=== PATIENT | male | born 1950 | race Caucasian/White ===

== ENCOUNTER 2017-08-11 22:26 | Inpatient (IN) ==
[2017-08-11] MEDS ORDERED: DiltiaZEM 25 MG/5 ML INJECTION IVP ONE (22:39)
[2017-08-11] MEDS ORDERED: NS 1,000 ML IV ONE (22:40)
--- NOTE | 2017-08-11 22:42 | Emergency Department Report ---
Cardiac General HPI - General Stated Complaint: CP, afib Time Seen by Provider: 08/11/17 22:35 Source: patient Mode of arrival: ambulatory Limitations: no limitations - History of Present Illness HPI narrative: Patient presents with 2 hour history of sudden onset palpitations with rapid heartbeat and mild shortness of breath. Patient has never had symptoms like this before, was walking in the stairs when he had sudden onset of symptoms. Patient's brother does have atrial fibrillation, and he was concerned that he might have had atrial fibrillation as well. - Related Data Home Medications Medication Instructions Recorded Confirmed Amlodipine Besylate 1 tab PO DAILY #30 07/03/15 Chlorthalidone 1 tab PO DAILY #30 07/03/15 Allergies Allergy/AdvReac Type Severity Reaction Status Date / Time nebivolol Allergy Unknown Unverified 04/02/16 15:52 Review of Systems All systems: reviewed and negative except as stated PFSH Patient Stated Medical History Cataracts Yes: right eye Hypertension Yes Gastroesophageal Reflux Yes Disease Hypertension Surgical History: Negative - Social History Smoking status: Never smoker Substance use type: does not use Alcohol intake frequency: does not drink Physical Exam - Limitations Limitations: no limitations - General General appearance: alert - Normal Exams: Head:: Normocephalic without trauma Eyes:: Pupils are PERRLA w/ EOMI, No scleral icterus, irritation, or foreign bodies noted ENMT:: No facial trauma, nasal exudates, pharyngeal erythema, or exudates are noted Neck:: Full range of motion, without adenopathy, JVD, bruits or thyromegaly Abdomen:: Bowel sounds positive, soft, non-tender, non-distended, no hepatosplenomegaly, masses or bruits noted Lymphatic:: No lymphadenopathy, or lymphedema noted Musculoskeletal:: No tenderness, or deformity noted, good range of motion, all extremities Integumentary:: No rashes, hives, or bruising noted, hair and nails, without abnormality Neurological:: Patient is alert, and oriented, cranial nerves, motor/sensory/ cerebellar, exams w/o gross deficits, to observation Psychiatric:: Patient exhibits, appropriate attention, emotion and affect - Chest Chest inspection: Present: normal inspection, symmetric chest wall rise. Absent : tenderness - Respiratory Respiratory exam: Present: normal lung sounds bilaterally. Absent: respiratory distress, wheezes, stridor, accessory muscle use, prolonged expiratory phase - Cardiovascular Cardiovascular exam: Present: tachycardia, irregular rhythm. Absent: regular rate, normal rhythm Course Vital Signs Temperature 97.9 F 08/11/17 22:30 Pulse Rate 151 H 08/11/17 22:30 Respiratory Rate 16 08/11/17 22:30 Blood Pressure 97/72 08/11/17 22:30 Pulse Oximetry 95 08/11/17 22:30 Temperature 97.9 F 08/11/17 22:30 Pulse Rate 151 H 08/11/17 22:30 Respiratory Rate 16 08/11/17 22:30 Blood Pressure 97/72 08/11/17 22:30 Pulse Oximetry 95 08/11/17 22:30 Cardiac General - MDM Narrative Medical decision making narrative: EKG and monitor show uncontrolled atrial fibrillation with a rapid ventricular rate, no other ischemia or infarction is seen. Patient is given 1 L normal saline IV fluid bolus and Cardizem 20 mg IV - to rate controlled but not conversion. CBC - n CMP - n Troponin -n Case was discussed with Dr. Jeffers's cardiac team, patient will be admitted to CCU, continue metoprolol dosing and fluids overnight, and will undertake possible second has cardioversion tomorrow after echo if the patient does not convert medically. - Lab Data Result diagrams: 08/11/17 22:44 08/11/17 22:44 Lab Results 08/11/17 08/11/17 Range/Units 22:44 22:44 WBC 6.2 (4.5-11.0) T/MM3 RBC 4.66 (4.50-5.90) M/MM3 Hgb 14.3 (13.5-17.5) GM/DL Hct 41.9 (41-53) % MCV 89.9 (80-100) UM3 MCH 30.7 (26-34) UUG MCHC 34.1 (31-37) GM/DL RDW Std Deviation 41.2 (36.9-50.2) FL Plt Count 216 (130-400) T/MM3 MPV 10.5 (9.4-12.4) UM3 Immature Gran % (Auto) 0.2 (0.0-0.5) % Neut % (Auto) 46.3 (33-66) % Lymph % (Auto) 39.0 (23-45) % Glascock % (Auto) 9.0 (0-9.0) % Eos % (Auto) 4.2 H (0-4) % Baso % (Auto) 1.3 (0-2) % Neut # (Auto) 2.9 (1.8-7.7) T/MM3 Lymph # (Auto) 2.4 (1-4.8) T/MM3 Glascock # (Auto) 0.6 (0-0.8) T/MM3 Eos # (Auto) 0.3 (0-0.5) T/MM3 Baso # (Auto) 0.1 (0-0.2) T/MM3 Abs Immat Gran (auto) 0.01 (0.00-0.03) T/MM3 Turbidity < 20 (0-20) Sodium 147 H (134-144) MEQ/L Potassium 3.3 L (3.6-5) MEQ/L Chloride 109 H (98-107) MEQ/L Carbon Dioxide 26 (22-30) MEQ/L Anion Gap 12 (5-15) MEQ/L BUN 27.0 H (9-20) MG/DL Creatinine 1.2 (0.8-1.5) MG/DL GFR Calculation 60 BUN/Creatinine Ratio 23 (6-26) RATIO Glucose 108 (75-110) MG/DL Calculated Osmolality 288 H (261-280) MOSM/KG Calcium 8.9 (8.4-10.2) MG/DL Total Bilirubin < 0.10 L (0.20-1.30) MG/DL Conjugated Bilirubin 0.00 (0.00-0.30) MG/DL Unconjugated Bilirubin 0.00 (0.00-1.1) MG/DL Icterus Index < 2 (0-7) AST 26 (17-59) U/L ALT 32 (21-72) U/L Alkaline Phosphatase 49 (38-126) U/L Troponin I < 0.012 (0-0.12) ng/ml Total Protein 6.7 (6.3-8.2) G/DL Albumin 3.8 (3.5-5.0) G/DL Globulin 2.9 (2.4-3.6) G/DL Albumin/Globulin Ratio 1.3 (1.1-2.2) RATIO Specimen Hemolysis < 15 (0-25) Critical Care Time Critical Care Time: Yes Total Critical Care Time: 40 Attestation: Patient had chest pain with shortness of breath and a 2 fibrillation with RVR, requiring extensive intervention, diagnostics, and therapeutic doses of cardiac medications. Disposition Clinical Impression: Atrial fibrillation with RVR Disposition: 02 To [facility] Condition: Improved Prescriptions: No Action Chlorthalidone 1 tab PO DAILY #30 Amlodipine Besylate 1 tab PO DAILY #30 Referrals: Nikhil Pathak MD [Family Provider] - - Seen By: physician
[2017-08-11] MEDS: SALINE FLUSH 10ml SYRINGE IVF PRN (22:47)
[2017-08-12] MEDS ORDERED: METOPROLOL 5mg/5ml INJECTION IVP ONE ×2 (00:16→00:35)
[2017-08-12] MEDS ORDERED: ONDANSETRON ODT 4 MG TABLET PO ONE (00:21)
[2017-08-12] MEDS ORDERED: IBUPROFEN 100 MG/5 ML ORAL LIQUID PO ONE (00:21)
[2017-08-12] MEDS: SALINE FLUSH 10ml SYRINGE IVF PRN (00:38)
[2017-08-12 00:57] VITALS: BMI 25.4
[2017-08-12] MEDS: HEPARIN SUB-Q 5,000units/0.5ml INJECTION SQ SCH ×3 (01:26→16:34)
[2017-08-12] MEDS ORDERED: NS 1,000 ML IV SCH (01:30)
[2017-08-12] MEDS ORDERED: CHLORTHALIDONE 25 MG TABLET PO SCH (11:30)
[2017-08-12] MEDS ORDERED: AMLODIPINE 5 MG TABLET PO SCH (11:30)
--- NOTE | 2017-08-12 12:18 | Cardiology History & Physical ---
History of Present Illness Chief complaint: atrial fibrillation HPI: Anam is a 67 year old patient of Dr. Nikhil Pathak who presented with 2 hour history of sudden onset palpitations with rapid heartbeat and mild shortness of breath. Patient has never had symptoms like this before, was walking in the stairs when he had sudden onset of symptoms. Patient's brother does have atrial fibrillation, and he was concerned that he might have had atrial fibrillation as well. He was examined in CCU where he has converted to SR. He reports that occasionally from time to time he has a feeling like he is close to passing out , usually associated with illness. He denies recent illness, fever, chills, sore throat, cough, chest pain or pressure, dyspnea, N/V/D. Review of Systems - Constitutional Constitutional: Present: as per HPI. Absent: chills, fever(s) - EENMT Eyes: Absent: change in vision Balance: Absent: vertigo Mouth/Throat: Absent: sore throat - Cardiovascular Cardiovascular: Present: palpitations. Absent: chest pain, syncope, dyspnea on exertion, orthopnea, heart murmur Rhythm: Absent: abnormal rhythm Vascular: Absent: pedal edema - Respiratory Respiratory: Absent: cough, dyspnea, dyspnea on exertion - Gastrointestinal Gastrointestinal: Absent: abdominal pain, diarrhea, nausea, vomiting - Genitourinary Genitourinary: Absent: dysuria - Neurological Neurological: Present: as per HPI, dizziness - Endocrine Endocrine: Absent: palpitations PFS Patient Stated Medical History Cataracts Yes: right eye Hypertension Yes Gastroesophageal Reflux Yes Disease Surgical History: Negative Family History: Brother - Atrial fibrillation - Social History Smoking status: Never smoker Substance use type: does not use Alcohol intake frequency: does not drink Housing: house Household members: spouse Current occupation: [employer] Medications Home Medications Medication Instructions Recorded Confirmed Type Amlodipine Besylate 1 tab PO DAILY #30 07/03/15 08/12/17 History Chlorthalidone 1 tab PO DAILY #30 07/03/15 08/12/17 History Allergies Allergy/AdvReac Type Severity Reaction Status Date / Time nebivolol AdvReac Mild Verified 08/12/17 01:04 Exam Vital signs: Temperature 98.5 F 08/12/17 04:00 Pulse Rate 97 08/12/17 07:00 Respiratory Rate 10 08/12/17 07:00 Blood Pressure 88/54 08/12/17 07:00 Pulse Oximetry 95 08/12/17 07:00 - Constitutional no acute distress, well nourished, cooperative - Routine HEENT Exam Head: Present: normocephalic ENT: Present: mucous membranes moist - Routine Neck Exam Absent: JVD, carotid bruit - Routine Chest/Breast/Axilla Exam Chest wall: Absent: tenderness - Routine Respiratory Exam Present: CTA bilaterally. Absent: rales, wheezes - Routine Cardiovascular Exam Present: RRR, no murmur. Absent: JVD - Routine Abdominal Exam Present: soft, normoactive bowel sounds - Routine Extremities Exam Present: no edema - Routine Skin Exam Present: intact, dry, warm - Routine Neurological Exam Present: alert, oriented X3 - Routine Psychiatric Exam Present: normal affect, normal thought process Results 08/13/17 03:48 08/13/17 03:48 Intake and Output 08/11/17 08/12/17 08/12/17 22:59 06:59 14:59 Intake Total 1392.5 / 1392.5 225 / 225 Output Total 500 / 500 200 / 200 Balance 892.5 / 892.5 25 / 25 Intake: IV 1342.5 / 1342.5 225 / 225 Ns 1,000 ml @ 75 mls/hr IV . 1342.5 / 1342.5 225 / 225 [id number] [facility] Rx#:[id number] Oral 50 / 50 Output: Urine 500 / 500 200 / 200 Other: Urine Appearance Clear Clear Urine Color Pale Yellow Yellow Weight 187 lb 13.341 oz - Imaging and Cardiology Echo: pending Hospital Course This is a general summary of the patient's hospital course. For more details refer to the complete medical record. Assessment and Plan - Attestation Attestation Narrative: 08/16/17 10:44 Recommendation After examining the patient I agree with the above assessment. I am involved in the formulation of the patient's plan of care. - Assessment and Plan (1) Atrial fibrillation with RVR Status: Acute Converted to SR with Cardizem and Metoprolol - Started on Flecainide 50mg bid for antiarrhythmic therapy - Started Pradaxa for anticoagulation therapy - monitor telemetry for arrhythmias - EKG in am (2) Essential (primary) hypertension Status: Chronic
[2017-08-12] MEDS ORDERED: FLECAINIDE 100 MG TABLET PO ONE (12:48)
[2017-08-12 13:28] VITALS: RESP 16
--- NOTE | 2017-08-12 13:42 | XRay Report ---
Indication: A Fib PROCEDURE: XR chest 1V: Encounter: Initial Comparison: Chest CT dated May 28, 2016 Findings: Lungs are clear. No pleural effusion or pneumothorax. Heart size is at the upper limits of normal. The mediastinal contours and pulmonary vascularity are normal. Mild degenerative change and scoliosis in the spine. Impression: No acute cardiopulmonary disease. .
[2017-08-12] MEDS: FLECAINIDE 50 MG TABLET PO SCH (20:47)
[2017-08-12] MEDS ORDERED: HEPARIN SUB-Q 5,000units/0.5ml INJECTION SQ SCH (21:00)
[2017-08-12] MEDS ORDERED: --POM--AMLODIPINE 5 MG TABLET PO SCH (21:00)
[2017-08-13] MEDS: FLECAINIDE 50 MG TABLET PO SCH (08:44)
[2017-08-13] MEDS ORDERED: --POM--CHLORTHALIDONE 25 MG TABLET PO SCH (09:00)
--- NOTE | 2017-08-13 10:22 | Discharge Summary ---
<Alexus Myers - Last Filed: 08/13/17 10:20> Discharge Information Date of admission: 08/12/17 13:32 Anticipated date of discharge: 08/13/17 Attending Physician: Jack Jeffers MD Primary care physician: Nikhil Pathak MD - Discharge Diagnosis (1) Atrial fibrillation with RVR Status: Acute (2) Essential (primary) hypertension Status: Chronic atrial fibrillation - Laboratory Labs: 08/13/17 03:48 08/13/17 03:48 History of Present Illness HPI: Anam is a 67 [address] patient of Dr. Nikhil Pathak who presented with 2 hour history of sudden onset palpitations with rapid heartbeat and mild shortness of breath. Patient has never had symptoms like this before, was walking in the stairs when he had sudden onset of symptoms. Patient's brother does have atrial fibrillation, and he was concerned that he might have had atrial fibrillation as well. He was examined in CCU where he has converted to SR. He reports that occasionally from time to time he has a feeling like he is close to passing out , usually associated with illness. He denies recent illness, fever, chills, sore throat, cough, chest pain or pressure, dyspnea, N/V/D. Hospital Course This is a general summary of the patient's hospital course. For more details refer to the complete medical record. Time spent with patient: 25 - 35 minutes Resuscitation Status: Full Code Exam Vital signs: Temperature 97 F 08/13/17 08:00 Pulse Rate 69 08/13/17 08:00 Respiratory Rate 16 08/13/17 08:00 Blood Pressure 122/78 08/13/17 08:00 Pulse Oximetry 93 08/13/17 08:00 - Constitutional no acute distress, well developed, cooperative - Routine HEENT Exam Head: Present: normocephalic ENT: Present: mucous membranes moist - Routine Neck Exam Absent: JVD, carotid bruit - Routine Chest/Breast/Axilla Exam Chest wall: Absent: tenderness - Routine Respiratory Exam Present: CTA bilaterally. Absent: dyspnea, rales, wheezes - Routine Cardiovascular Exam Present: RRR, no murmur. Absent: JVD - Routine Abdominal Exam Present: soft, normoactive bowel sounds - Routine Extremities Exam Present: no edema - Routine Skin Exam Present: intact, dry, warm - Routine Neurological Exam Present: alert, oriented X3 - Routine Psychiatric Exam Present: normal affect, normal thought process Results 08/13/17 03:48 08/13/17 03:48 CBC 08/13/17 Range/Units 03:48 WBC 4.8 (4.5-11.0) T/MM3 RBC 4.45 L (4.50-5.90) M/MM3 Hgb 13.6 (13.5-17.5) GM/DL Hct 40.1 L (41-53) % Plt Count 190 (130-400) T/MM3 Comprehensive Metabolic Panel 08/13/17 Range/Units 03:48 Sodium 147 H (134-144) MEQ/L Potassium 3.2 L (3.6-5) MEQ/L Chloride 110 H (98-107) MEQ/L Carbon Dioxide 28 (22-30) MEQ/L BUN 17.0 (9-20) MG/DL Creatinine 1.0 (0.8-1.5) MG/DL Glucose 91 (75-110) MG/DL Calcium 8.5 (8.4-10.2) MG/DL Intake and Output 08/12/17 08/13/17 08/13/17 22:59 06:59 14:59 Intake Total 540 / 540 200 / 200 240 / 240 Output Total 1290 / 1290 320 / 320 Balance -750 / -750 -120 / -120 240 / 240 Intake: Oral 540 / 540 200 / 200 240 / 240 Output: Urine 1290 / 1290 320 / 320 Other: Urine Color Yellow Yellow Urine Odor Normal Normal # Voids 1 Weight 188 lb 7.924 oz Patient Weight 08/14/17 06:59 Weight 188 lb 7.924 oz - Imaging and Cardiology Echo: pending EKG results: image reviewed Imaging & Cardiology Narrative: Date of Exam: 08/12/17 Ordering Provider: Alexus Myers APRN Type of Exam(s): XR chest 1V Reason for Exam(s): A Fib Indication: A Fib PROCEDURE: XR chest 1V: Encounter: Initial Comparison: Chest CT dated May 28, 2016 Findings: Lungs are clear. No pleural effusion or pneumothorax. Heart size is at the upper limits of normal. The mediastinal contours and pulmonary vascularity are normal. Mild degenerative change and scoliosis in the spine. Impression: No acute cardiopulmonary disease. 08/13/17 10:20 - EKG Interpretation EKG: sinus rhythm Discharge Plan - Med Rec/Dispo Referrals/Follow Up: Jack Jeffers MD [Physician] - [facility] Instructions: Flecainide (By mouth) (Tambocor), A-fib (Atrial Fibrillation) (DC) Prescriptions: [place]abigatran [Pradaxa] 150 mg PO BID #60 cap Flecainide [Tambocor] 50 mg PO BID #60 tab Continue Chlorthalidone 1 tab PO DAILY #30 Amlodipine Besylate 1 tab PO DAILY #30 - Disposition 01 Discharged Home, Self-Care <Jack Jeffers - Last Filed: 08/16/17 10:47> Discharge Information Date of admission: 08/12/17 13:32 Attending Physician: Jack Jeffers MD Primary care physician: Nikhil Pathak MD - Discharge Diagnosis (1) Atrial fibrillation with RVR Status: Acute (2) Essential (primary) hypertension Status: Chronic - Laboratory Labs: 08/13/17 03:48 08/13/17 03:48 Hospital Course This is a general summary of the patient's hospital course. For more details refer to the complete medical record. Exam Vital signs: Temperature 95.7 F L 08/13/17 12:36 Pulse Rate 72 08/13/17 12:36 Respiratory Rate 16 08/13/17 12:36 Blood Pressure 143/98 H 08/13/17 12:36 Pulse Oximetry 98 08/13/17 12:36 Results 08/13/17 03:48 08/13/17 03:48 Attestation Narriative - Attestation Attestation Narrative: 08/16/17 10:47 Recommendation After examining the patient I agree with the above assessment. I am involved in the formulation of the patient's plan of care.
[2017-08-13 12:37] VITALS: BP 143/98; PULSE 72; TEMP 95.7; O2SAT 98
--- NOTE | 2017-08-13 19:29 | Echocardiogram ---
DATE OF PROCEDURE August 12, 2017 This is a two-dimensional echo with spectral Doppler, color-flow and M-mode. It was obtained in a patient with atrial fibrillation. Left atrium is mildly dilated. Left ventricular end-diastolic dimension is normal. Left ventricular wall thickness is abnormal with asymmetrical septal hypertrophy with septal thickness of 2.0 cm and posterior wall thickness of 1.0 cm. There is no LV outflow obstruction. Left ventricular systolic function is normal with ejection fraction of about 70%. Right atrium is normal. Right ventricle is normal. Aortic root dimension is normal. Mitral valve is morphologically normal with mild mitral regurgitation. Aortic valve shows fibrocalcific changes with no stenosis. Mild aortic insufficiency is present. Tricuspid valve shows mild tricuspid regurgitation with normal estimated pulmonary artery systolic pressure of 30. Pulmonary valve shows trace of pulmonary insufficiency. There is no pericardial effusion. IMPRESSION 1. Left atrial dilation. 2. Asymmetrical septal hypertrophy with no outflow obstruction. 3. Normal LV systolic function with ejection fraction of 70%. 4. Mild mitral regurgitation. 5. Aortic sclerosis with mild aortic insufficiency. 6. Mild tricuspid regurgitation with normal estimated pulmonary artery systolic pressure of 30. 7. Trace of pulmonary insufficiency. MTDD
== END 2017-08-13 13:24 | disposition home or self-care (01) | DRG 310 ==
LOC: CCU 22:26 → ED 22:26 → CCU 08-12 00:48 → SRG 08-12 13:13
PROVIDERS: ADMIT Internal Medicine Cardiovascular Disease; ATTEND Internal Medicine Cardiovascular Disease